=== PATIENT | female | born 1980 | race Hispanic/Latino ===

== ENCOUNTER 2018-09-08 11:52 | Day surgery (SDC) | payer OTHER ==
[2018-09-08] MEDS ORDERED: NACL 0.9% 1000 ML 1,000 ML IV SCH (13:00)
[2018-09-08] MEDS ORDERED: DIPRIVAN 10 MG/ML IV ONE (13:03)
--- NOTE | 2018-09-08 13:37 | Operative Report ---
PREOPERATIVE DIAGNOSIS: Gastroesophageal reflux disease. POSTOPERATIVE DIAGNOSIS: Gastroesophageal reflux disease. PROCEDURE: EGD with biopsy. SURGEON: Gustavo Baker MD ANESTHESIA: IV sedation, general anesthesia. ESTIMATED BLOOD LOSS: Minimal. COMPLICATIONS: None. DRAINS: None. SPECIMEN: Antral biopsy. The patient tolerated the procedure well. DESCRIPTION OF PROCEDURE: The patient was taken to the endoscopy suite, placed in left lateral position. IV sedation was given by anesthesia. Once obtained, placed an endoscope per mouth into the esophagus and stomach under direct visualization. No evidence of hiatal hernia was noted. No gastric pathology was noted. The first and second part of duodenum were intact. No evidence of abnormality or ulcers or bleeding noted. Retroflexed, found to have no obvious hiatal hernia. Good gastric anatomy. We did an antral biopsy for H. pylori as well. After adequate hemostasis, the endoscope was removed. The patient tolerated the procedure well. JOB# [id number] AFIA/VLADIMIR
[2018-09-08 13:52] VITALS: BP 135/87
== END 2018-09-08 11:53 | disposition home or self-care (01) ==
LOC: GIO 11:52
PROVIDERS: ATTEND Surgery
DX: K21.9 Gastro-esophageal reflux disease without esophagitis (principal); I10 Essential (primary) hypertension; E03.9 Hypothyroidism, unspecified; Z79.899 Other long term (current) drug therapy; Z98.890 Other specified postprocedural states
CPT/HCPCS: 43239; 81025; 88305; 88342; J2704; J7030